=== PATIENT | male | born 1975 | race Caucasian/White ===

== ENCOUNTER 2023-08-20 12:18 | Outpatient (CLI) | payer MEDICARE, MEDICAID, SELFPAY ==
--- NOTE | ~2023-08-20 | XR_ITS ---
EXAMINATION: XR thoracic spine 2V DATE: 08/20/2023 13:03 INDICATION: A mechanical complication of implanted electrodes TECHNIQUE: AP, lateral and lateral swimmer's views of the thoracic spine were obtained. COMPARISON: None. FINDINGS: Electronic leads are present in the central spinal canal at the level of the T8 vertebral b bharati. The leads appear to be intact. Bone alignment is normal. There is no fracture. There is mild ant erior wedging of multiple thoracic vertebral bodies. There is also mild to moderate loss of intervert ebral disc space height at multiple levels. IMPRESSION: 1. Electronic leads appear to be intact. 2. Moderate thoracic spondylosis. Reviewed, dictated and finalized at location F.
--- NOTE | ~2023-08-20 | XR_ITS ---
EXAMINATION: XR lumbar spine 2-3V DATE: 08/20/2023 13:03 INDICATION: Other mechanical complication of implanted electronic device TECHNIQUE: Anteroposterior and lateral views of the lumbar spine, and cone-down lateral view of the l umbosacral junction were obtained. COMPARISON: 11/15/2017 FINDINGS: An electronic device with two leads is implanted in the posterior subcutaneous tissues of t he left buttock. Its leads course beyond the superior margin of the radiograph. There are 2 mm of ret rolisthesis of L4 on L5. The vertebral body heights are maintained. There is mild loss of interverteb ral disc space height throughout the lumbar spine. Small degenerative osteophytes project from the an terior endplates of multiple vertebral bodies. There is moderate facet joint osteoarthritis at L5-S1. IMPRESSION: 1. Mild to moderate lumbar spondylosis without acute findings. Reviewed, dictated and finalized at location F.
--- NOTE | ~2023-08-20 | XR_ITS ---
XR chest 2V 08/20/2023 13:03 Indication: Encounter for preprocedural examination Procedure: 2 view chest Comparison: No prior studies for comparison. Findings: Heart size normal. No focal air space disease, pulmonary edema, pleural effusion or suspect ed pneumothorax. Spinal stimulator leads overlying the mid thoracic spine. No acute osseous abnormali ty. Mild pulmonary vascular congestion. Impression: 1: No acute cardiopulmonary disease. Reviewed, dictated and finalized at location A. Impression: 1: No acute cardiopulmonary disease.
--- NOTE | 2023-08-20 12:32 | ECG_ITS ---
Measurements Intervals Sawyer Rate: 85 P: 60 CO: 146 QRS: 47 QRSD: 125 T: 18 QT: 379 QTc: 451 Interpretive Statements SINUS RHYTHM RIGHT BUNDLE BRANCH BLOCK [120+ ms QRS DURATION, UPRIGHT V1, 40+ ms S IN I/aVL/V4/V5/V6] NO PREVIOUS ECG AVAILABLE FOR COMPARISON Electronically Signed On 08-20-2023 13:37:02 CDT by Vitaliy Ko MD
[2023-08-20 13:00] LABS: Hematocrit 40.8 % (42.0-52.0); Hemoglobin 14.1 g/dL (14.0-18.0); Mean Corpuscular HGB Conc 34.6 g/dl (32-36); Mean Corpuscular Hemoglobin 32.6 pg (26-34); Mean Corpuscular Volume 94.2 fl (80-100); Mean Platelet Volume 9.4 fl (7.4-10.4); Platelet Count Result 281 k/mm3 (150-375); Red Blood Count 4.33 M/mm3 (4.6-6.20); White Blood Count 10.6 K/mm3 (4.5-10.0)
[2023-08-20 13:08] LABS: Anion Gap 13 mmol/L (8-16); Blood Urea Nitrogen 10 mg/dL (9-20); Calcium 9.3 mg/dL (8.4-10.2); Carbon Dioxide 24 mmol/L (22-30); Chloride 101 mmol/L (98-107); Estimated Glomerular Filt Rate > 60; Glucose 115 mg/dL (65-110); Potassium 3.6 mmol/L (3.4-5.0); Sodium 138 mmol/L (137-145)
[2023-08-20 13:12] LABS: Appearance Urine Clear (Clear); Bacteria Urine None Seen /hpf; Bilirubin Urine Negative (Negative); Blood Urine Trace (Negative); Color Urine Dark Yellow (Yellow); Glucose Urine UA Negative (Negative); Ketones Urine Trace mg/dL (Negative); Leukocyte Esterase Ur Negative LEU/UL (Negative); Nitrate Urine Negative (Negative); Non Pathogenic Casts 0-2; Protein Urine 3+ mg/dL (Negative); RBC Urine 0-2 /hpf (0-2); Specific Grav Ur 1.022 (1.001-1.035); Squamous Epithelial Cell Urine None seen /hpf (Few); Urobilinogen Urine >=8.0 mg/dL (<2.0); WBC Urine 0-5 /hpf
[2023-08-20 13:13] LABS: Add Urine Microscopic? YES
[2023-08-20 13:24] LABS: Hemoglobin A1C 5.7 % (<5.7)
[2023-08-20 13:31] LABS: INR 1.1; Prothrombin Time 14.4 Seconds (11.1-14.7)
[2023-08-20 13:32] LABS: Partial Thromboplastin Time 33.5 SECONDS (22.3-36.8)
== END 2023-08-20 12:19 | disposition home or self-care (01) ==
PROVIDERS: PCP Nurse Practitioner Adult Health; Visit Provider Neurological Surgery
DX: Z01.818 Encounter for other preprocedural examination (principal); T85.192A Other mechanical complication of implanted electronic neurostimulator of spinal cord electrode (lead), initial encounter; I45.10 Unspecified right bundle-branch block; M43.06 Spondylolysis, lumbar region; M43.04 Spondylolysis, thoracic region; E11.9 Type 2 diabetes mellitus without complications; Z95.0 Presence of cardiac pacemaker
CPT/HCPCS: 36415; 71046; 72070; 72100; 80048; 81001; 83036; 85027; 85610; 85730; 93005

== ENCOUNTER 2023-08-25 00:41 | Day surgery (SDC) | payer MEDICARE, MEDICAID, SELFPAY ==
[2023-08-10 11:36] VITALS: BMI 43.1
--- NOTE | 2023-08-10 11:37 | PC.NURSE ---
Report to the Outpatient Waiting Room, entrance under the green pavilion located off [facility], at time _0830_ on date _[id number]_. Planned Procedure Time: _1030_. Time changes happen often and if your time is changed the preop area will call you the afternoon before. - You and your visitor will be asked to self-screen and do not enter if you have any COVID symptoms. - A mask is optional within the hospital at this time. Patients may have clear liquids (water, carbonated beverages, clear teas, apple juice) until 3 hours prior to surgery with a maximum of 20 ounces. - No food from midnight until time of surgery Take the following medications with a SIP of water the morning of surgery: __Amlodipine and Gabapentin DO NOT STOP ANY OF YOUR OTHER PRESCRIPTION MEDICATIONS PRIOR TO SURGERY ?EXCEPT THE FOLLOWING Medications to discontinue per physician None Date to take last dose Please no make-up, nail belgian, hairspray, perfume, deodorant, or body powder the day of surgery. No jewelry (including any body piercings) or valuables the day of surgery, leave them at home. Please take a shower or bath the night before, or the morning of, surgery with an antibacterial soap. Wear comfortable, loose fitting clothing. - Jewelry must be removed prior to entering the operating room. Rings and piercings that are not removed may be cut off. - The hospital will not accept responsibility for valuables. - Please leave all valuables, including medications, at home the day of surgery. If you are going home after surgery, a licensed local tanker truck driver must drive you home. - NO public transportation without another adult if you receive anesthesia. - We recommend that an adult stay with you for 24 hours following discharge. - We also recommend that you do not drive, make important decision, drink alcoholic beverages, or take any drugs that were not prescribed by your health care provider for at least 24 hours after your discharge time. Follow any additional instructions given to you from your surgeon. If you or anyone in your household have experienced Covid symptoms in the past week, please notify your surgeon or the nurse liaison at the phone number below for possible testing. Telephone instructions given to ___Patient___and asked if any additional questions and then verbalized understanding. Patient advised to call surgeon office or pre surgery nurse liaison [phone] if any additional questions.
[2023-08-25] VITALS (8 sets, daily range): BP systolic 120–148; BP diastolic 69–86; PULSE 59–91; RESP 14–20; TEMP 36.2–36.4; O2SAT 92–100
[2023-08-25] MEDS: LACTATED RINGERS 1,000 ML 30 ML IV CONT ×2 (09:05→11:47)
[2023-08-25 09:20] LABS: Glucose Point of Care 114 mg/dl (65-105)
--- NOTE | 2023-08-25 09:46 | WPDHPUPDATE1 ---
History and Physical Update Update Date/Time: 08/25/23 09:46 History and Physical has been reviewed, including an updated exam of the patient. There are NO changes in the patient's condition. Risks, benefits, and alternatives have been discussed and questions answered. Patient agrees to proceed with procedure.
--- NOTE | 2023-08-25 09:47 | PM.IMHP ---
H&P: HPI History of Present Illness Date/Time: 08/25/23 09:47 Chief Complaint: Stimulator non functioning Narrative: Mr. Kimbrough is a? 47-year-old male with history of psoriasis, hypertension, and diabetes who presents for evaluation of spinal cord stimulator dysfunction. In November 2013, the patient had a thoracic laminectomy for placement of an epidural paddle [employer] spinal cord stimulator.? He had this placed originally for low back pain.? The stimulator was somewhat helpful, but he did not keep up the charging, and he has not used it in 8 years.? It is no longer able to turn on.? Currently, he has issues with constant low back pain with radicular pain down the back right leg into the calf.? He denies any left-sided symptoms.? on discussion with the [employer] rep, was told that there is a new and smaller battery that may be more helpful controlling his symptoms, so he is here today to talk about having his generator replaced. [facility] Past Medical History Medical History (Updated 07/01/23 @ 11:37 by Julita Kelly MD) Bipolar 1 disorder Diabetes Hyperlipidemia Neurostimulator device in situ 2013 [place] (obstructive sleep apnea) Vertigo Surgical History Surgical History (Updated 07/01/23 @ 10:46 by Thuy Hilario) H/O shoulder surgery H/O: knee surgery Family History Family History (Updated 07/01/23 @ 10:47 by Thuy Hilario) Father Diabetes mellitus Hypertension Heart problem Mother Asthma Diabetes mellitus Hypertension Depression Heart problem Social History Social History (Updated 07/01/23 @ 10:50 by Thuy Hilario) Smoking packs per day: 1 Smoking cigarettes per day: 20.0 Years smoked: 30 Smoking pack-years: 30.00 Smoking status: Current every day smoker Tobacco type: cigarettes Alcohol intake: never Substance use: current Substance use type: marijuana Other substance usage details: daily Lack of Transportation: No Lack of Food: Never True Current Housing: I Have Housing Concerned About Future Housing: No Difficulty Paying Gas/Electric Bills: YES Difficulty Paying for Meds: No Currently Unemployed: No Education: Trade/Vocational Certificate Difficulty w/ Childcare or Family Care: No Living arrangements: with family Occupation/Education: other Gender identity (if verbalized by the patient): Male Sexual Orientation (if Verbalized by the Patient): Straight or Heterosexual Spiritual care concerns: No Meds Home Medications and Allergies Home Medications Medication Instructions Recorded Confirmed Type atorvastatin 20 mg tablet 20 mg PO DAILY 09/07/19 08/25/23 History gabapentin 300 mg capsule 900 mg PO QID 09/07/19 08/25/23 History glipizide 5 mg tablet 2.5 mg PO BID 09/07/19 08/25/23 History losartan 100 mg tablet 100 mg PO DAILY 09/07/19 08/25/23 History meclizine 25 mg tablet 50 mg PO QID 09/07/19 08/25/23 History metformin 500 mg tablet 1,000 mg PO BID 09/07/19 08/25/23 History nortriptyline 25 mg capsule 50 mg PO HS 09/07/19 08/25/23 History omeprazole 40 mg capsule,delayed 40 mg PO DAILY 09/07/19 08/25/23 History release amlodipine 5 mg tablet 5 mg PO DAILY 08/10/23 08/25/23 History methotrexate sodium 5 mg tablet 205 mg PO WEEKLY 08/10/23 08/25/23 History (Taranxall) Allergies Allergy/AdvReac Type Severity Reaction Status Date / Time codeine Allergy Severe Hives Verified 08/25/23 08:30 hydrochlorothiazide Allergy Severe Pancreatiti Verified 08/25/23 08:30 s meperidine [From Demerol] Allergy Severe Hives Verified 08/25/23 08:30 naproxen Allergy Intermediate Rash Verified 08/25/23 08:30 Vital Signs Vital Signs - 24 hr 08/25/23 08:26 Temperature 97.1 F L Pulse Rate 59 L Respiratory Rate 20 Blood Pressure 120/69 Pulse Oximetry 95 Oxygen Delivery Room Air Exam Narrative: Midline thoracic incision Left gluteal incision over generator Unless otherwise stated above, the patient's physical exa
--- NOTE | 2023-08-25 10:04 | WPDANESEPPF ---
Anes - Initial Pre Proc Eval Procedure: Operation Date: 08/25/23 10:30 Proposed Procedures p Replacement Left Gluteus Stimulator Generator, Possible Revision Thoracic Epidural Paddle - Julita Kelly MD Date/Time: 08/25/23 10:04 Surgeon: Julita Kelly MD Pre Op Diagnosis: spinal cord stimulator dysfunction Patient Data Age: 47 Gender: M Height: 1.7 m Weight: 116.2 kg Last Vital Signs Temp 97.1 F L 08/25/23 08:26 Pulse 59 L 08/25/23 08:26 Resp 20 08/25/23 08:26 BP 120/69 08/25/23 08:26 Pulse Ox 95 08/25/23 08:26 O2 Del Method Room Air 08/25/23 08:26 Allergies Allergy/AdvReac Type Severity Reaction Status Date / Time codeine Allergy Severe Hives Verified 08/25/23 08:30 hydrochlorothiazide Allergy Severe Pancreatiti Verified 08/25/23 08:30 s meperidine [From Demerol] Allergy Severe Hives Verified 08/25/23 08:30 naproxen Allergy Intermediate Rash Verified 08/25/23 08:30 Home Medications Medication Instructions Recorded Confirmed Type atorvastatin 20 mg tablet 20 mg PO DAILY 09/07/19 08/25/23 History gabapentin 300 mg capsule 900 mg PO QID 09/07/19 08/25/23 History glipizide 5 mg tablet 2.5 mg PO BID 09/07/19 08/25/23 History losartan 100 mg tablet 100 mg PO DAILY 09/07/19 08/25/23 History meclizine 25 mg tablet 50 mg PO QID 09/07/19 08/25/23 History metformin 500 mg tablet 1,000 mg PO BID 09/07/19 08/25/23 History nortriptyline 25 mg capsule 50 mg PO HS 09/07/19 08/25/23 History omeprazole 40 mg capsule,delayed 40 mg PO DAILY 09/07/19 08/25/23 History release amlodipine 5 mg tablet 5 mg PO DAILY 08/10/23 08/25/23 History methotrexate sodium 5 mg tablet 205 mg PO WEEKLY 08/10/23 08/25/23 History (Trexall) Laboratory Tests 08/25/23 09:17 POC Capillary Glucose 114 H mg/dl (65-105) Patient hx anesthesia problems: none Family hx anesthesia problems: none Results Review: All pre-operative results and documents have been reviewed as part of the pre-operative evaluation. [facility] Past Medical History Medical History (Updated 07/01/23 @ 11:37 by Julita Kelly MD) Bipolar 1 disorder Diabetes Hyperlipidemia Neurostimulator device in situ 2013 [place] (obstructive sleep apnea) Vertigo Surgical History Surgical History (Updated 07/01/23 @ 10:46 by Thuy Hilario) H/O shoulder surgery H/O: knee surgery Family History Family History (Updated 07/01/23 @ 10:47 by Thuy Hilario) Father Diabetes mellitus Hypertension Heart problem Mother Asthma Diabetes mellitus Hypertension Depression Heart problem Social History Social History (Updated 07/01/23 @ 10:50 by Thuy Hilario) Smoking packs per day: 1 Smoking cigarettes per day: 20.0 Years smoked: 30 Smoking pack-years: 30.00 Smoking status: Current every day smoker Tobacco type: cigarettes Alcohol intake: never Substance use: current Substance use type: marijuana Other substance usage details: daily Lack of Transportation: No Lack of Food: Never True Current Housing: I Have Housing Concerned About Future Housing: No Difficulty Paying Gas/Electric Bills: YES Difficulty Paying for Meds: No Currently Unemployed: No Education: Trade/Vocational Certificate Difficulty w/ Childcare or Family Care: No Living arrangements: with family Occupation/Education: other Gender identity (if verbalized by the patient): Male Sexual Orientation (if Verbalized by the Patient): Straight or Heterosexual Spiritual care concerns: No Anes - Eval Final PreProcedure Day of Procedure 08/25/23 10:04 Patient weight: morbidly obese Heart: regular rate and rhythm Lungs: clear to auscultation Airway: Mallampati scale class III Neurological: alert and oriented Last oral intake: >/= 8 hours ASA classification: III Emergent: no Anesthetic plan: proceed Anesthesia type and monitoring: general ETT and standard monitoring Results Review: All
[2023-08-25] MEDS: ceFAZolin 2 GM/D5W 50 ML 2 GM/50 ML BAG IVPB (10:07)
[2023-08-25] MEDS: BUPIVACAINE/EPINEPHRINE 0.5% 50 ML VIAL 10 ML INFILTRATE (10:42)
[2023-08-25] MEDS: VANCOMYCIN HCL 1,000 MG VIAL 500 MG TOPICAL (10:43)
--- NOTE | 2023-08-25 11:07 | PM.OP ---
Procedure Note - Brief Procedure Note - Brief Date of procedure: 08/25/23 spinal cord stimulator dysfunction Post-op diagnosis: Same Procedure performed: Replacement of left gluteal generator Surgeon: Julita Kelly MD Anesthesia: GETA and local Description of procedure: Left gluteal battery was replaced and interrogated with the remainder of the stimulator found to be functioning with low impedances Drains: No Packing: No Pathology: None sent Complications: None Condition: Stable Disposition: PACU
--- NOTE | 2023-08-25 11:21 | P.OP_ITS ---
Procedure Note - Detailed Date of Procedure 08/25/23 Pre-op Diagnosis spinal cord stimulator dysfunction Post-op Diagnosis Same Procedure Performed Replacement of left gluteal spinal cord stimulator generator Surgeon Julita Kelly MD Designer Architect Kathy Anesthesia General and Local Indications Mr. Kimbrough is a 47-year-old male with history of a spinal cord stimulator placed about 10 years ago who has not used it in 8 years and is interested in resuming stimulator use for his back and right leg pain, but the battery has . He presents for replacement of the generator and possibly the remainder of the system if needed. Risks including bleeding, pain, infection, failure to control symptoms, spinal cord damage, weakness, and paralysis were discussed. The patient provided written informed consent to proceed. Description of Procedure The patient was brought to the OR where general anesthesia was induced. The patient was turned prone onto the Josh frame. All pressure points were padded. The previous incisions were marked. The patient was prepped and draped in usual sterile fashion. Time out was conducted. Local anesthesia was injected into the planned incision. The left gluteal incision was opened with a 15-blade. The soft tissue was dissected with the bovie to expose the battery. A thin capsule surrounding the battery was dissected and opened with the Metzenbaum scissors until the battery was able to be removed from the pocket. The stimulator leads were removed and placed into the new battery. The device was interrogated and was found to be functioning well with low impedances; therefore, we did not need to replace the thoracic paddle. The pocket was irrigated copiously. The generator was secured with a 2-0 silk suture. Stimulan beads were mixed with antibiotic and placed into the pocket around the generator. The dermis was closed with 2-0 and 3-0 vicryl. The skin was closed with 4-0 monocryl. Skin glue was placed over the incision. The patient was returned to the supine position, extubated, and transferred to PACU without incident. Codes:68965 Estimated Blood Loss 5 Drains No Packing No Pathology None sent Complications None Condition Stable Disposition PACU [facility] Billing Surgery - Charge Forward: Surgery Billing
[2023-08-25 12:04] LABS: Glucose Point of Care 122 mg/dl (65-105)
== END 2023-08-25 13:09 | disposition home or self-care (01) ==
PROVIDERS: PCP Nurse Practitioner Adult Health; Visit Provider Neurological Surgery
PROC: (CPT 63685; principal; 2023-08-25 10:30)
DX: T85.192A Other mechanical complication of implanted electronic neurostimulator of spinal cord electrode (lead), initial encounter (principal); Y83.8 Other surgical procedures as the cause of abnormal reaction of the patient, or of later complication, without mention of misadventure at the time of the procedure; E11.9 Type 2 diabetes mellitus without complications; E78.5 Hyperlipidemia, unspecified; G47.33 Obstructive sleep apnea (adult) (pediatric); F31.9 Bipolar disorder, unspecified; Z79.84 Long term (current) use of oral hypoglycemic drugs; F17.210 Nicotine dependence, cigarettes, uncomplicated; F12.90 Cannabis use, unspecified, uncomplicated; E66.01 Morbid (severe) obesity due to excess calories; Z68.41 Body mass index [BMI] 40.0-44.9, adult
CPT/HCPCS: 63685; 36415; 71046; 72070; 72100; 80048; 81001; 82948; 83036; 85027; 85610; 85730; 93005; A9270; C1787; C1820; J0330; J0690; J1100; J1170; J2250; J2405; J2704; J3010; J3370; J7120

== ENCOUNTER 2024-02-02 13:49 | Outpatient (CLI) | payer MEDICARE, SELFPAY ==
[2024-02-02 14:24] LABS: Hematocrit 33.1 % (42.0-52.0); Hemoglobin 11.7 g/dL (14.0-18.0); Mean Corpuscular HGB Conc 35.3 g/dl (32-36); Mean Corpuscular Hemoglobin 34.9 pg (26-34); Mean Corpuscular Volume 98.8 fl (80-100); Mean Platelet Volume 9.9 fl (7.4-10.4); Platelet Count Result 240 k/mm3 (150-375); Red Blood Count 3.35 M/mm3 (4.6-6.20); Red Cell Distribution Width 14.3 % (11.5-14.5); White Blood Count 3.7 K/mm3 (4.5-10.0)
[2024-02-02 14:38] LABS: Alanine Aminotransferase 22 U/L (6-50); Albumin Level 4.2 g/dL (3.5-5.1); Alkaline Phosphatase 68 U/L (38-126); Anion Gap 4 mmol/L (4-12); Aspartate Amino Transferase 32 U/L (17-59); Bilirubin,Total 0.8 mg/dL (0.2-1.3); Blood Urea Nitrogen 5 mg/dL (9-20); Calcium 9.1 mg/dL (8.4-10.2); Carbon Dioxide 30 mmol/L (22-30); Chloride 102 mmol/L (98-107); Estimated Glomerular Filt Rate > 60; Glucose 87 mg/dL (65-110); Potassium 2.9 mmol/L (3.4-5.0); Sodium 136 mmol/L (137-145)
[2024-02-07 10:34] LABS: Immunoglobulin A 404 mg/dL (47-310); TTG IGA AB <1.0 U/mL (<15.0)
== END 2024-02-02 13:50 | disposition home or self-care (01) ==
LOC: ANHLAB 13:53
PROVIDERS: PCP Family Medicine; Visit Provider Nurse Practitioner Family
DX: I10 Essential (primary) hypertension (principal); R42 Dizziness and giddiness; R19.7 Diarrhea, unspecified; R11.2 Nausea with vomiting, unspecified; R63.4 Abnormal weight loss
CPT/HCPCS: 36415; 80053; 82784; 84443; 85027; 86364

== ENCOUNTER 2024-02-04 11:31 | Outpatient (CLI) | payer MEDICARE, SELFPAY ==
[2024-02-04 11:40] LABS: Toxigenic C. Diff NEGATIVE (NEGATIVE)
[2024-02-04 12:53] LABS: Iron 79 ug/dL (49-181)
[2024-02-04 13:03] LABS: Percent Iron Saturation 30 % (20-50)
[2024-02-08 13:29] LABS: Fecal Fat, Ql Normal (Normal)
== END 2024-02-04 11:32 | disposition home or self-care (01) ==
LOC: ANHLAB 11:34
PROVIDERS: PCP Family Medicine; Visit Provider Nurse Practitioner Family
DX: E11.9 Type 2 diabetes mellitus without complications (principal); D64.9 Anemia, unspecified; R63.4 Abnormal weight loss; R19.7 Diarrhea, unspecified
CPT/HCPCS: 36415; 82607; 82705; 82728; 82746; 83540; 83550; 87045; 87177; 87209; 87427; 87449; 87493

== ENCOUNTER 2024-02-10 06:44 | Outpatient (CLI) | payer MEDICARE, SELFPAY ==
--- NOTE | ~2024-02-10 | CT_ITS ---
CT of the Abdomen and Pelvis: Indication: Abdominal pain Technique: 2.5 mm axial scans were obtained through the abdomen and pelvis following intravenous adm inistration of 100 cc of Omnipaque 350. Dose reduction technique was used on this scan by utilizing a utomated exposure control and iterative reconstruction technique. The dose-length product (DLP) was 9 02.16 mGy-cm. Findings: Scans through the lung bases are unremarkable. The liver, spleen, pancreas, gallbladder, adrenals and kidneys are within normal limits. No evidence of aortic aneurysm. Mildly prominent dorothea hepatis lymph nodes are present, nonspecific. No bowel obstruction or bowel wall thickening. There is no evidence to suggest acute appendicitis. Images through the pelvis were performed. Urinary bladder unremarkable. No pelvic mass seen. No ascit es. Impression: Mildly prominent dorothea hepatis lymph nodes, nonspecific, most likely reactive. Reviewed, dictated and finalized at [facility]. Impression: Mildly prominent dorothea hepatis lymph nodes, nonspecific, most likely reactive.
== END 2024-02-10 06:45 | disposition home or self-care (01) ==
LOC: ANHIMG 06:46
PROVIDERS: PCP Family Medicine; Visit Provider Nurse Practitioner Family
DX: R59.0 Localized enlarged lymph nodes (principal); R63.4 Abnormal weight loss; R19.7 Diarrhea, unspecified; R11.2 Nausea with vomiting, unspecified
CPT/HCPCS: 74177; Q9967

== ENCOUNTER 2024-02-11 10:27 | Outpatient (CLI) | payer MEDICARE, SELFPAY ==
[2024-02-11 11:43] LABS: Alanine Aminotransferase 22 U/L (6-50); Albumin Level 4.1 g/dL (3.5-5.1); Alkaline Phosphatase 64 U/L (38-126); Anion Gap 8 mmol/L (4-12); Aspartate Amino Transferase 38 U/L (17-59); Bilirubin,Total 0.9 mg/dL (0.2-1.3); Blood Urea Nitrogen 7 mg/dL (9-20); Calcium 9.2 mg/dL (8.4-10.2); Carbon Dioxide 25 mmol/L (22-30); Chloride 104 mmol/L (98-107); Estimated Glomerular Filt Rate > 60; Glucose 84 mg/dL (65-110); Potassium 3.2 mmol/L (3.4-5.0); Sodium 137 mmol/L (137-145)
[2024-02-11 13:52] LABS: Hepatitis B Surface Antigen Negative (Negative)
[2024-02-11 13:59] LABS: HAV RESULT Negative (Negative); Hepatitis B Core IgM Result Negative (Negative)
[2024-02-11 14:09] LABS: Hepatitis C Virus Antibody Negative (Negative)
== END 2024-02-11 10:28 | disposition home or self-care (01) ==
PROVIDERS: PCP Family Medicine; Referring Provider Nurse Practitioner; Visit Provider Nurse Practitioner Family
DX: R11.2 Nausea with vomiting, unspecified (principal); E87.6 Hypokalemia; D61.818 Other pancytopenia; R59.1 Generalized enlarged lymph nodes; R63.4 Abnormal weight loss
CPT/HCPCS: 36415; 80053; 80074

== ENCOUNTER 2024-02-11 10:44 | Outpatient (CLI) | payer MEDICARE, SELFPAY ==
[2024-02-11 11:45] LABS: Calcium 9.1 mg/dL (8.4-10.2)
[2024-02-11 12:49] LABS: Folic Acid 2.3 ng/mL (2.76->20)
[2024-02-11 13:32] LABS: Vitamin D 25 Hydroxy 30.9 ng/mL
== END 2024-02-11 10:45 | disposition home or self-care (01) ==
PROVIDERS: PCP Family Medicine; Visit Provider Registered Nurse
DX: E55.9 Vitamin D deficiency, unspecified (principal); D64.9 Anemia, unspecified
CPT/HCPCS: 36415; 80053; 80074; 82306; 82310; 82607; 82746

== ENCOUNTER 2024-02-18 10:09 | Outpatient (NON) | payer MEDICARE, SELFPAY | END 2024-02-18 10:10 | disposition home or self-care (01) | LOC: ANHLAB 10:10 | PROVIDERS: PCP Family Medicine; Visit Provider Nurse Practitioner Family | DX: R19.4 Change in bowel habit (principal); R19.7 Diarrhea, unspecified | CPT/HCPCS: 87045; 87177; 87209; 87427; 87449 ==

== ENCOUNTER 2024-03-06 11:17 | Outpatient (CLI) | payer MEDICARE, SELFPAY ==
[2024-03-06 11:35] LABS: Basophils Percent Auto 0.4 % (0.2-1.2); Eosinophils Absolute Auto 0.1 K/mm3 (0-0.3); Eosinophils Percent Auto 1.5 % (0-4.4); Hematocrit 32.9 % (42.0-52.0); Hemoglobin 11.5 g/dL (14.0-18.0); Immature Granulocyte Absolute 0.03 K/mm3 (0.00-0.031); Immature Granulocyte Percent A 0.6 % (0-0.5); Lymphocytes Absolute Auto 0.91 K/mm3 (0.9-3.2); Lymphocytes Percent Auto 19.1 % (18.3-44.2); Mean Corpuscular Hemoglobin 35.7 pg (26-34); Mean Corpuscular Volume 102.2 fl (80-100); Mean Platelet Volume 9.1 fl (7.4-10.4); Monocytes Absolute Auto 0.9 K/mm3 (0.1-0.6); Monocytes Percent Auto 17.8 % (2.6-8.5); Neutrophils Absolute Auto 2.9 K/mm3 (1.3-6.7); Neutrophils Percent Auto 60.6 % (45.5-73.1); Platelet Count Result 296 k/mm3 (150-375); Red Blood Count 3.22 M/mm3 (4.6-6.20); Red Cell Distribution Width 14.8 % (11.5-14.5); White Blood Count 4.8 K/mm3 (4.5-10.0)
[2024-03-06 12:20] LABS: Alanine Aminotransferase 19 U/L (6-50); Albumin Level 4.4 g/dL (3.5-5.1); Alkaline Phosphatase 75 U/L (38-126); Anion Gap 7 mmol/L (4-12); Aspartate Amino Transferase 35 U/L (17-59); Bilirubin,Total 0.9 mg/dL (0.2-1.3); Blood Urea Nitrogen 10 mg/dL (9-20); Calcium 9.7 mg/dL (8.4-10.2); Carbon Dioxide 27 mmol/L (22-30); Chloride 103 mmol/L (98-107); Estimated Glomerular Filt Rate > 60; Glucose 88 mg/dL (65-110); Potassium 3.6 mmol/L (3.4-5.0); Sodium 137 mmol/L (137-145)
[2024-03-06 13:24] LABS: Folic Acid 3.7 ng/mL (2.76->20)
[2024-03-06 16:46] LABS: Iron 59 ug/dL (49-181)
[2024-03-06 16:55] LABS: Percent Iron Saturation 20 % (20-50)
[2024-03-09 14:13] LABS: Methylmalonic Acid 136 nmol/L (87-318)
== END 2024-03-06 11:18 | disposition home or self-care (01) ==
LOC: ANHLAB 11:18
PROVIDERS: PCP Family Medicine; Visit Provider Internal Medicine Hematology & Oncology
DX: D61.818 Other pancytopenia (principal); D62 Acute posthemorrhagic anemia; D53.9 Nutritional anemia, unspecified; D72.821 Monocytosis (symptomatic)
CPT/HCPCS: 36415; 80053; 82607; 82728; 82746; 83540; 83550; 83921; 85025

== ENCOUNTER 2024-03-30 00:12 | Day surgery (SDC) | payer MEDICARE, SELFPAY ==
[2024-03-10 14:03] VITALS: BMI 35.6
[2024-03-30 07:14] VITALS: BP 126/73; PULSE 60; RESP 18; TEMP 36.1; O2SAT 100
[2024-03-30] MEDS: LACTATED RINGERS 1,000 ML 150 ML IV CONT (07:25)
[2024-03-30 07:26] LABS: Glucose Point of Care 99 mg/dl (65-105)
--- NOTE | 2024-03-30 08:14 | PM.HPGS ---
History of Present Illness History of Present Illness Consent: Risks, benefits, and alternatives have been discussed and questions answered. Patient agrees to proceed with procedure. Chief complaint: diarrhea unspecified, change in bowel habit, abnor Narrative: Hector Kimbrough is a 48 year old male with nausea, diarrhea and weight loss. Serology for celiac negative, stool sample negative for infection, CT scan no major findings. Here for egd and colonoscopy, also noted anemia hgb 11 Review of Systems Review of Systems: All systems reviewed & are unremarkable except as noted in HPI and below PMFSH Past Medical History Medical History (Updated 02/10/24 @ 10:59 by Mar Whitney, WRAP TURNER) Abdominal pain Anemia Bipolar 1 disorder Change in bowel habits Diabetes Diarrhea Hyperlipidemia Nausea & vomiting Neurostimulator device in situ 2013 [place] (obstructive sleep apnea) Vertigo Weight loss Surgical History Surgical History H/O shoulder surgery H/O: knee surgery Family History Family History Father Diabetes mellitus Hypertension Heart problem Mother Asthma Diabetes mellitus Hypertension Depression Heart problem Social History Social History Smoking packs per day: 1 Smoking cigarettes per day: 20.0 Years smoked: 38 Smoking pack-years: 38.00 Smoking status: Current every day smoker Tobacco type: cigarettes Alcohol intake: current Alcohol use details: rarely Substance use: current Substance use type: marijuana Other substance usage details: Daily Do You Feel Safe in your Home?: Yes Lack of Transportation: No Lack of Food: Never True Current Housing: I Have Housing Concerned About Future Housing: No Difficulty Paying Gas/Electric Bills: No Difficulty Paying for Meds: No Currently Unemployed: No Education: Trade/Vocational Certificate Difficulty w/ Childcare or Family Care: No Living arrangements: with family Occupation/Education: other Gender identity (if verbalized by the patient): Male Sexual Orientation (if Verbalized by the Patient): Straight or Heterosexual Spiritual care concerns: No Meds Home Medications and Allergies Home Medications Medication Instructions Recorded Confirmed Type atorvastatin 20 mg tablet 20 mg PO DAILY 09/07/19 03/10/24 History gabapentin 300 mg capsule 900 mg PO QID 09/07/19 03/10/24 History glipizide 5 mg tablet 2.5 mg PO BID 09/07/19 03/10/24 History losartan 100 mg tablet 100 mg PO DAILY 09/07/19 03/10/24 History meclizine 25 mg tablet 50 mg PO QID 09/07/19 03/10/24 History metformin 500 mg tablet 1,000 mg PO BID 09/07/19 03/10/24 History amlodipine 5 mg tablet 5 mg PO DAILY 08/10/23 03/10/24 History methotrexate sodium 5 mg tablet 205 mg PO WEEKLY 08/10/23 03/10/24 History (Trexall) esomeprazole magnesium 40 mg 40 mg PO DAILY 1 month #30 caps 02/02/24 03/10/24 Rx capsule,delayed release (Nexium) mecobalamin (vitamin B12) 1,000 1,000 mcg PO DAILY 1 month #30 tabs 02/07/24 03/10/24 Rx mcg chewable tablet Allergies Allergy/AdvReac Type Severity Reaction Status Date / Time codeine Allergy Severe Hives Verified 03/30/24 07:13 hydrochlorothiazide Allergy Severe Pancreatiti Verified 03/30/24 07:13 s meperidine [From Demerol] Allergy Severe Hives Verified 03/30/24 07:13 naproxen Allergy Intermediate Rash Verified 03/30/24 07:13 Vital Signs Vital Signs - 24 hr 03/30/24 07:14 Temperature 97 F L Pulse Rate 60 Respiratory Rate 18 Blood Pressure 126/73 Pulse Oximetry 100 Oxygen Delivery Room Air Exam Const: General: comfortable and no acute distress HENMT: Face/Nose/Sinus: Normal nares present Eyes: General: appearance normal, both eyes and all related structures Neck: Neck: no JVD Resp: Auscultation: clear t
--- NOTE | 2024-03-30 08:21 | WPDANESEPPF ---
Anes - Initial Pre Proc Eval Procedure: Operation Date: 03/30/24 08:30 Proposed Procedures p Esophagogastroduodenoscopy & Colonoscopy - Masood Leahy MD Date/Time: 03/30/24 08:21 Surgeon: Masood Leahy MD Pre Op Diagnosis: diarrhea unspecified, change in bowel habit, abnor Patient Data Age: 48 Gender: M Height: 1.68 m Weight: 97.7 kg Last Vital Signs Temp 97 F L 03/30/24 07:14 Pulse 60 03/30/24 07:14 Resp 18 03/30/24 07:14 BP 126/73 03/30/24 07:14 Pulse Ox 100 03/30/24 07:14 O2 Del Method Room Air 03/30/24 07:14 Allergies Allergy/AdvReac Type Severity Reaction Status Date / Time codeine Allergy Severe Hives Verified 03/30/24 07:13 hydrochlorothiazide Allergy Severe Pancreatiti Verified 03/30/24 07:13 s meperidine [From Demerol] Allergy Severe Hives Verified 03/30/24 07:13 naproxen Allergy Intermediate Rash Verified 03/30/24 07:13 Home Medications Medication Instructions Recorded Confirmed Type atorvastatin 20 mg tablet 20 mg PO DAILY 09/07/19 03/10/24 History gabapentin 300 mg capsule 900 mg PO QID 09/07/19 03/10/24 History glipizide 5 mg tablet 2.5 mg PO BID 09/07/19 03/10/24 History losartan 100 mg tablet 100 mg PO DAILY 09/07/19 03/10/24 History meclizine 25 mg tablet 50 mg PO QID 09/07/19 03/10/24 History metformin 500 mg tablet 1,000 mg PO BID 09/07/19 03/10/24 History amlodipine 5 mg tablet 5 mg PO DAILY 08/10/23 03/10/24 History methotrexate sodium 5 mg tablet 205 mg PO WEEKLY 08/10/23 03/10/24 History (Trexall) esomeprazole magnesium 40 mg 40 mg PO DAILY 1 month #30 caps 02/02/24 03/10/24 Rx capsule,delayed release (Nexium) mecobalamin (vitamin B12) 1,000 1,000 mcg PO DAILY 1 month #30 tabs 02/07/24 03/10/24 Rx mcg chewable tablet Laboratory Tests 03/30/24 07:23 POC Capillary Glucose 99 mg/dl (65-105) Patient hx anesthesia problems: none Family hx anesthesia problems: none Results Review: All pre-operative results and documents have been reviewed as part of the pre-operative evaluation. [facility] Past Medical History Medical History (Updated 02/10/24 @ 10:59 by Mar Whitney APRN) Abdominal pain Anemia Bipolar 1 disorder Change in bowel habits Diabetes Diarrhea Hyperlipidemia Nausea & vomiting Neurostimulator device in situ 2013 [place] (obstructive sleep apnea) Vertigo Weight loss Surgical History Surgical History H/O shoulder surgery H/O: knee surgery Family History Family History Father Diabetes mellitus Hypertension Heart problem Mother Asthma Diabetes mellitus Hypertension Depression Heart problem Social History Social History Smoking packs per day: 1 Smoking cigarettes per day: 20.0 Years smoked: 38 Smoking pack-years: 38.00 Smoking status: Current every day smoker Tobacco type: cigarettes Alcohol intake: current Alcohol use details: rarely Substance use: current Substance use type: marijuana Other substance usage details: Daily Do You Feel Safe in your Home?: Yes Lack of Transportation: No Lack of Food: Never True Current Housing: I Have Housing Concerned About Future Housing: No Difficulty Paying Gas/Electric Bills: No Difficulty Paying for Meds: No Currently Unemployed: No Education: Trade/Vocational Certificate Difficulty w/ Childcare or Family Care: No Living arrangements: with family Occupation/Education: other Gender identity (if verbalized by the patient): Male Sexual Orientation (if Verbalized by the Patient): Straight or Heterosexual Spiritual care concerns: No Anes - Eval Final PreProcedure Day of Procedure 03/30/24 08:21 Patient weight: obese Heart: regular rate and rhythm Lungs: clear to auscultation Airway: Mallampati s
--- NOTE | 2024-03-30 08:26 | SUR.OPER ---
EGD ended at 820, colon began at 825.
--- NOTE | 2024-03-30 08:39 | ECG_ITS ---
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 Measurements Intervals [place] Rate: 58 P: 13 NC: 158 QRS: 61 QRSD: 121 T: 6 QT: 447 QTc: 440 Interpretive Statements SINUS BRADYCARDIA RIGHT BUNDLE BRANCH BLOCK BASELINE ARTIFACT- I, II, III, AVR, AVL, AVF, V1 ABNORMAL ECG No previous ECG available for comparison Electronically Signed On 03-30-2024 11:15:33 CDT by Eduard Viavs D.O.
[2024-03-30 08:40] VITALS: BP 121/76; PULSE 68; RESP 28; O2SAT 97
[2024-03-30 08:50] VITALS: BP 125/82; PULSE 63; RESP 17; O2SAT 99
--- NOTE | 2024-03-30 08:56 | SUR.PHASEII ---
Pt had a slight change in heart rhythm in procedure room, EKG performed Dr. Norton said OK for Pt to be discharged he can follow up with primary.
[2024-03-30 09:00] VITALS: BP 140/95; PULSE 62; RESP 21; O2SAT 100
== END 2024-03-30 09:16 | disposition home or self-care (01) ==
PROVIDERS: PCP Family Medicine; Referring Provider Nurse Practitioner Family; Visit Provider Internal Medicine Gastroenterology
PROC: 0DJ08ZZ Inspection of Upper Intestinal Tract, Via Natural or Artificial Opening Endoscopic (ICD-10-PCS; CPT 43235; principal; 2024-03-30 08:30)
DX: R19.4 Change in bowel habit (principal); K63.5 Polyp of colon; K64.8 Other hemorrhoids; D64.9 Anemia, unspecified; E78.5 Hyperlipidemia, unspecified; E11.9 Type 2 diabetes mellitus without complications; G47.33 Obstructive sleep apnea (adult) (pediatric); F31.9 Bipolar disorder, unspecified; F17.210 Nicotine dependence, cigarettes, uncomplicated; F12.90 Cannabis use, unspecified, uncomplicated; E66.9 Obesity, unspecified; Z68.34 Body mass index [BMI] 34.0-34.9, adult; Z79.84 Long term (current) use of oral hypoglycemic drugs; Z98.890 Other specified postprocedural states; Z82.49 Family history of ischemic heart disease and other diseases of the circulatory system
CPT/HCPCS: 43239; 45380; 45385; 82948; 88305; 93005; J2704; J7120

== ENCOUNTER 2024-06-15 12:59 | Outpatient (CLI) | payer MEDICARE, SELFPAY ==
[2024-06-15 13:12] LABS: Basophils Percent Auto 0.5 % (0.2-1.2); Eosinophils Absolute Auto 0.2 K/mm3 (0-0.3); Eosinophils Percent Auto 4.2 % (0-4.4); Hematocrit 38.8 % (42.0-52.0); Hemoglobin 13.2 g/dL (14.0-18.0); Immature Granulocyte Absolute 0.01 K/mm3 (0.00-0.031); Immature Granulocyte Percent A 0.2 % (0-0.5); Lymphocytes Absolute Auto 1.43 K/mm3 (0.9-3.2); Lymphocytes Percent Auto 25.9 % (18.3-44.2); Mean Corpuscular Hemoglobin 33.2 pg (26-34); Mean Corpuscular Volume 97.7 fl (80-100); Mean Platelet Volume 9.1 fl (7.4-10.4); Monocytes Absolute Auto 0.4 K/mm3 (0.1-0.6); Monocytes Percent Auto 7.8 % (2.6-8.5); Neutrophils Absolute Auto 3.4 K/mm3 (1.3-6.7); Neutrophils Percent Auto 61.4 % (45.5-73.1); Platelet Count Result 301 k/mm3 (150-375); Red Blood Count 3.97 M/mm3 (4.6-6.20); Red Cell Distribution Width 11.8 % (11.5-14.5); White Blood Count 5.5 K/mm3 (4.5-10.0)
[2024-06-15 13:16] LABS: Blood Urea Nitrogen 10 mg/dL (8-26); Carbon Dioxide 25 mmol/L (22-30); Chloride 101 mmol/L (98-109); Estimated Glomerular Filt Rate > 60; Glucose 116 mg/dL (70-105); Ionized Calcium (POC) 1.16 mmol/L (1.11-1.31); Potassium 4.3 mmol/L (3.5-4.9); Sodium 138 mmol/L (138-146)
[2024-06-15 17:25] LABS: Alanine Aminotransferase 15 U/L (6-50); Albumin Level 4.4 g/dL (3.5-5.1); Alkaline Phosphatase 57 U/L (38-126); Anion Gap 13 mmol/L (4-12); Aspartate Amino Transferase 23 U/L (17-59); Bilirubin,Total 0.5 mg/dL (0.2-1.3); Blood Urea Nitrogen 11 mg/dL (9-20); Calcium 9.5 mg/dL (8.4-10.2); Carbon Dioxide 23 mmol/L (22-30); Chloride 99 mmol/L (98-107); Estimated Glomerular Filt Rate > 60; Glucose 112 mg/dL (65-110); Potassium 4.5 mmol/L (3.4-5.0); Sodium 135 mmol/L (137-145)
== END 2024-06-15 13:00 | disposition home or self-care (01) ==
LOC: ANHLAB 13:01
PROVIDERS: PCP Family Medicine; Visit Provider Internal Medicine Hematology & Oncology
DX: D61.818 Other pancytopenia (principal)
CPT/HCPCS: 36415; 80047; 80053; 85025

== ENCOUNTER 2024-07-05 07:27 | Outpatient (CLI) | payer MEDICARE, SELFPAY ==
--- NOTE | ~2024-07-05 | CT_ITS ---
CT of the Abdomen and Pelvis: Indication: Ashley hepatis lymph nodes follow-up Technique: 2.5 mm axial scans were obtained through the abdomen and pelvis following intravenous adm inistration of 100 cc of Omnipaque 350. Dose reduction technique was used on this scan by utilizing a utomated exposure control and iterative reconstruction technique. The dose-length product (DLP) was 1 222.69 mGy-cm. COMPARISON: 02/10/2024 Findings: Scans through the lung bases are unremarkable. The liver, spleen, pancreas, gallbladder, adrenals and kidneys are within normal limits. No evidence of aortic aneurysm. Stable prominent ashley hepatis lymph nodes.. No bowel obstruction or bowel wall thickening. There is no evidence to suggest acute appendicitis. Images through the pelvis were performed. Urinary bladder unremarkable. No pelvic mass seen. No ascit es. Impression: Stable mildly prominent ashley hepatis lymph nodes, nonspecific. Reviewed, dictated and finalized at [facility]. Impression: Stable mildly prominent ashley hepatis lymph nodes, nonspecific.
== END 2024-07-05 07:28 | disposition home or self-care (01) ==
PROVIDERS: PCP Family Medicine; Visit Provider Nurse Practitioner Family
DX: R59.1 Generalized enlarged lymph nodes (principal)
CPT/HCPCS: 74177; Q9967